=== PATIENT | male | born 1940 | race Caucasian/White ===

== ENCOUNTER → 2018-07-16 11:31 | Outpatient (CLI) | payer MEDICARE ==
[~2018-07-16] VITALS: Ht 182.9 cm; Wt 88.6 kg
--- NOTE | ~2018-07-16 | HEMODYNAMI ---
PATIENT:JARAD DIAMOND MEDICAL RECORD: [id number] : 40 LOCATION:[facility] ADMISSION DATE: 07/16/18 Generatedon:07/16/201814:17 Patient name: JARAD DIAMOND Patient #: [id number] S SN: : 1940 Date of study: 07/16/2018 Page: Of Hemodynamic Procedure Report Patient Data Patient Demographics Procedure consent was obtained First Name: JARAD Gender: Male Last Name: LOBO : 1940 Middle Initial: C Age: 77 year(s) Patient #: [id number] Race: Unknown Additional ID: [id number] Contact details Address: [address] [place] [address] [place] State: [place] City: [place] Zip code: [address] Past Medical History Allergies Allergen Reaction Date Comments Reported Other allergy 07/16/2018 codeine Admission Admission Data Admission Date: 07/16/2018 Admission Time: 11:31 Admit Source: Other Lab Results Lab Result Date: 07/16/2018 Lab Result Time: 12:00 Biochemistry Name Units Result Min Max BUN mg/dl 14 --(--*-)-- 7 18 Creatinine mg/dl 1.2 --(---*)-- 0.6 1.3 CBC Name Units Result Min Max Hematocrit % 44 --(*---)-- 42 54 Hemoglobin g/dl 15.1 --(-*--)-- 13.5 17.5 Coagulation Name Units Result Min Max INR units 1.11 --(---*)-- 0.85 1.17 PT sec 13.8 --(--*-)-- 11.6 15 Procedure Procedure Types Cath Procedure Diagnostic Procedure C [facility] w/Coronaries Sedation Charges Moderate Sedation up to 15 minutes Procedure Description Procedure Date Procedure Date: 07/16/2018 Procedure Start Time: 13:40 Procedure End Time: 14:03 Procedure Staff Name Function Arlet Lane RT Monitor Manfred Cruz RN Cell Assembly Pinner Reid White MD Performing Physician Neville Galo RT Scrub Cooper Barakat RN Nurse Mariah Montes RN Cell Assembly Pinner Procedure Data Cath Procedure Fluoroscopy Diagnostic fluoroscopy Total fluoroscopy Time: 3.7 time: 3.7 min min Diagnostic fluoroscopy Total fluoroscopy dose: 840 dose: 840 mGy mGy Contrast Material Contrast Material Type Amount (ml) Isovue 300 88 Entry Location Entry Primary Successful Side Size Upsize Upsize Entry Closure Succes sful Closure Location (Fr) 1 (Fr) 2 (Fr) Remarks Device Remarks Radial Right 6 Fr Exoseal artery Short Femoral Right 5 Fr 6 Fr 6 Fr Exoseal artery Long Short Estimated blood loss: 5 ml Diagnostic catheters Device Type Used For End Catheter Placement DIAGNOSTIC [place] 110cm 5 LV Angiography Fr catheter ([id number]) MULTIPACK JL 4.0 5Fr Left Coronary catheter Angiography MULTIPACK JL 4.0 5Fr Left Coronary catheter Angiography MULTIPACK 3DRC 5Fr Right Coronary catheter Angiography MULTIPACK Pigtail 5 Fr LV Angiography catheter Procedure Complications No complications Procedure Medications Medication Administration Route Dosage 0.9% NaCl I.V. 100 ml/hr Oxygen etCO2 Nasal cannula 2 l/min Heparin Flush Bag added to field 2 bags (1000units/500ml NS) Lidocaine 2% added to field 20 Radial Cocktail added to field 1 syringe (Verapomil 2mg/Nitro 400mcg/Heparin 1500units) Versed I.V. 1 mg Fentanyl I.V. 50 mcg Versed I.V. 1 mg Fentanyl I.V. 50 mcg Hemodynamics Rest HGB: 15.1 (g/dl) Heart Rate: 46 (bpm) Pressure Samples Time Site Value (mmHg) Purpose Heart Use Rate(bpm) 13:45 LV 96/1,4 Snapshot 51 13:46 LV 91/1,3 Pullback 76 13:46 AO 97/65(79) Pullback 76 13:57 LV 129/-2,10 EDP 60 Gradients Valve Time Site 1 Site 2 Mean SEP/DFP Peak To Heart Use (mmHg) (sec/min) Peak Rate (mmHg) (bpm) Aortic 13:46 LV AO 0 3 0 76 91/1,3 97/65(79) Aortic 13:57 LV AO 47 Snapshots Pre Cath Intra NCS Post Cath Vital Signs Time Heart Resp SPO2 etCO2 NIBP (mmHg) Rhythm Pain Sedation Rate (ipm) (%) (mmHg) Status Level (bpm) 13:33:35 47 13 96 35.7 157/89(134) SB 0 (11) 10(A) , No pain 13:37:59 46 11 98 36.4 136/87(105) SB 0 (11) 10(A) , No pain 13:42:07 47 14 98 29.8 140/91(107) SB 0 (11) 10(A) , No pain 13:46:23 47 12 97 18.6 106/71(82) SB 0 (11) 9(A) , No pain 13:50:25 49 13 96 23.8 118/74(94) SB 0 (11) 9(A) , No pain 13:54:33 48 10 96 30.4 124/72(94) SB 0 (11) 9(A) , No pain 13:58:36 46 13 96 35.7 134/88(107) SB 0 (11) 10(A) , No pain 14:02:44 59 8 96 8.9 128/79(98) SB 0 (11) 10(A) , No pain Medications Time Medication Route Dose Verified Delivered Reason Notes E ffectiveness by by 13:33:34 0.9% NaCl I.V. 100 Cooper Cooper Per ml/hr Lorigan Lorigan physician RN RN 13:33:44 Oxygen etCO2 2 l/min Cooper Cooper Per Nasal Lorigan Lorigan physician cannula RN RN 13:33:53 Heparin Flush added 2 bags Cooper Cooper used for Bag to Lorigan Lorigan procedure (1000units/500ml field RN RN NS) 13:34:03 Lidocaine 2% added 20ml Cooper Cooper for local to vial Lorigan Lorigan anesthetic field RN RN 13:34:18 Radial Cocktail added 1 Cooper Cooper used for (Verapomil to syringe Lorigan Lorigan procedure 2mg/Nitro field RN RN 400mcg/Hepari 13:36:28 Versed I.V. 1 mg Cooper Cooper for Lorigan Lorigan sedation RN RN 13:36:38 Fentanyl I.V. 50 mcg Cooper Cooper for Lorigan Lorigan sedation RN RN 13:42:08 Versed I.V. 1 mg Cooper Cooper for Lorigan Lorigan sedation RN RN 13:42:12 Fentanyl I.V. 50 mcg Cooper Cooper for Lorigan Lorigan sedation RN river pilot Log Time Note 13:05:04 Informed consent obtained and on chart 13:05:08 Admit Source: Other 13:05:25 Diagnostic Cath status Elective 13:05:26 Time tracking: Regular hours (M-F 7:00 - 5:00) 13:05:30 Plan of Care:Hemodynamics will remain stable., Cardiac rhythm will remain stable., Comfort level will be maintained., Respiratory function will remain adequate., Patient/ family verbilizes understanding of procedure., Procedure tolerated without complication., Recovers from procedure without complications.. 13:05:41 H&P Date Dictated: 07/11/2018 Within 30 days and on chart., H&P Addendum completed by physician on day of procedure. (MUST COMPLETE FOR ALL OUTPATIENTS). 13:06:54 Lab Result : Hematocrit 44 % 13:06:54 Lab Result : PT 13.8 sec 13:06:54 Lab Result : INR 1.11 units 13:06:54 Lab Result : BUN 14 mg/dl 13:06:54 Lab Result : Creatinine 1.2 mg/dl 13:06:54 Lab Result : Hemoglobin 15.1 g/dl 13:06:56 Lab results completed and on chart. 13:14:41 Cooper Barakat RN sent for patient. Start room use. 13:20:18 Patient received from Pre/Post Procedure Room to CCL 2 Alert and oriented. Tansferred to table in Supine position. 13:20:19 Correct patient and procedure confirmed by team. 13:20:19 Warm blankets applied, and kennedy hugger turned on for patient comfort. 13:20:20 ECG and BP/O2 sat monitors applied to patient. 13:20:21 Pre-procedure instructions explained to patient. 13:20:22 Pre-op teaching completed and patient verbalized understanding. 13:20:23 Family in waiting room. 13:20:24 Patient NPO since Midnight. 13:20:37 Patient allergic to Other allergycodeine 13:20:40 Is the patient allergic to Iodine/contrast media? No. 13:32:36 Vital chart was started 13:32:40 Rhythm: sinus bradycardia 13:32:41 Full Disclosure recording started 13:32:49 Is patient on blood thinner?No 13:32:51 Patient diabetic? No. 13:32:57 Previous problem with sedation/anesthesia? No ? 13:32:58 Snore? Yes 13:32:59 Deviated septum? No 13:32:59 Sleep apnea? No 13:33:01 Opens mouth fully? Yes 13:33:02 Sticks out tongue? Yes 13:33:04 Airway obstruction? No ? 13:33:05 Dentures? No ? 13:33:10 Pre procedure: right dorsailis pedis pulse 2+ Normal; easily identifiable; not easily obliterated 13:33:12 Modified Derek's test Ulnar < 7 seconds 13:33:13 Patient pain scale 0/10 ?. 13:33:21 IV patent on arrival in left forearm with 0.9% NaCl at [facility]. 13:33:34 0.9% NaCl 100 ml/hr I.V. was administered by Cooper Barakat RN; Per physician; 13:33:36 Right Radial & Right Groin area was prepped with chlora-prep and draped in sterile fashion 13:33:37 Sharps counted by scrub and verified by R.N. 13:33:37 Alarms reviewed by R. N. 13:33:40 Use device set Radial Dx or PCI 13:33:41 Medline Cath Pack ([id number]) opened to sterile field. 13:33:41 ACIST Syringe (69134) opened to sterile field. 13:33:42 DIAGNOSTIC WIRE .035 260cm J wire (405401) opened to sterile field. 13:33:42 Bag Decanter (2002S) opened to sterile field. 13:33:43 ACIST Manifold (42723) opened to sterile field. 13:33:43 ACIST Hand Control (02546) opened to sterile field. 13:33:44 MBrace Wrist Support ([id number]) opened to sterile field. 13:33:44 Oxygen 2 l/min etCO2 Nasal cannula was administered by Cooper Barakat RN; Per physician; 13:33:45 SHEATH 6FR Slender (80-1060) opened to sterile field. 13:33:53 Heparin Flush Bag (1000units/500ml NS) 2 bags added to field was administered by Cooper Barakat RN; used for procedure; 13:34:03 Lidocaine 2% 20ml vial added to field was administered by Cooper Barakat RN; for local anesthetic; 13:34:18 Radial Cocktail (Verapomil 2mg/Nitro 400mcg/Heparin 1500units) 1 syringe added to field was administered by Cooper Barakat RN; used for procedure; 13:34:42 Baseline sample Acquired. 13:34:46 Final Timeout: patient, procedure, and site verified with staff and physician. All members of the team are in agreement. 13:34:51 Right Radial site verified by team. 13:34:55 Fire Safety Assessment: A--An alcohol-based skin anteseptic being used preoperatively., C--Open oxygen or nitrous oxide is being used., D--An ESU, laser, or fiber-optic light is being used. 13:34:59 Physical assessment completed. ASA score P 2 - A patient with mild systemic disease as per Reid White MD. 13:35:03 Sedation plan: IV Moderate Sedation Medication:Versed, Fentanyl 13:36:28 Versed 1 mg I.V. was administered by Cooper Barakat RN; for sedation; 13:36:38 Fentanyl 50 mcg I.V. was administered by Cooper Barakat RN; for sedation; 13:37:04 Zero performed for pressure channel P1 13:37:09 Zero performed for pressure channel P1 13:40:26 Procedure started. 13:40:54 Local anesthetic to right radial artery with Lidocaine 2% by Reid White MD.INITIAL ACCESS ONLY 13:42:08 Versed 1 mg I.V. was administered by Cooper Barakat RN; for sedation; 13:42:10 A 6 Fr Short sheath was inserted into the Right Radial artery 13:42:12 Fentanyl 50 mcg I.V. was administered by Cooper Barakat RN; for sedation; 13:43:18 A DIAGNOSTIC [place] 110cm 5 Fr catheter ([id number]) was advanced over the wire and used for LV Angiography. 13:46:01 LV gram done using ALLISON 13:46:11 LV hemodynamics recorded. 13:46:15 Injector settings: Ml/sec: 5, Volume: 15, 13:46:20 Catheter removed. 13:46:38 Local anesthetic to right femoral artery with Lidocaine 2% by Reid White MD.ADDITIONAL ACCESS 13:46:47 Use device set Multipack Set 13:46:50 DIAGNOSTIC Multipack 5Fr catheter set ([id number]) opened to sterile field. 13:47:05 SHEATH 5FR Nordman (IJF222) opened to sterile field. 13:48:04 A 5 Fr sheath was inserted into the Right Femoral artery 13:48:32 A MULTIPACK JL 4.0 5Fr catheter was advanced over the wire and used for Left Coronary Angiography.removed unable to cannulate 13:50:23 SHEATH 6FR Destination (RSR01) opened to sterile field. 13:50:39 Sheath upsized to a 6 Fr Long. 13:50:49 SHEATH 6FR Nordman (MDK318) opened to sterile field. 13:52:52 A MULTIPACK JL 4.0 5Fr catheter was advanced over the wire and used for Left Coronary Angiography. 13:54:32 Catheter removed. 13:54:44 A MULTIPACK 3DRC 5Fr catheter was advanced over the wire and used for Right Coronary Angiography. 13:56:02 Catheter removed. 13:56:17 A MULTIPACK Pigtail 5 Fr catheter was advanced over the wire and used for LV Angiography. 13:57:27 LV gram done using ALLISON 13:57:32 Injector settings: Ml/sec: 10, Volume: 20, 13:57:37 EF : 55 % 13:57:51 Catheter removed. 13:58:06 Sheath removed intact; hemostasis achieved with Exoseal to the Right Femoral artery. 13:58:06 Sheath upsized to a 6 Fr Short. 13:58:17 Sheath removed intact; hemostasis achieved with Exoseal to the Right Radial artery. 13:58:25 Procedure ended.(Physican Out) 13:58:37 Fluoroscopy time 03.70 minutes. 13:58:40 Fluoroscopy dose: 840 mGy 13:58:40 Flurop Dose total: 840 13:58:47 Contrast amount:Isovue 300 88ml. 13:58:48 Sharps counted by scrub and verified by R.N. 13:58:51 TR band inflated with 12cc of air. 13:58:52 Insertion/operative site no bleeding no hematoma. 13:58:55 Post-op/insertion site Right Femoral artery dressed using a 4 x 4 and Tegaderm. 13:58:58 Post right femoral artery:stable, clean and dry 13:59:00 Post Procedure Pulses reassessed and unchanged 13:59:02 Post-procedure physical assessment completed. ASA score P 2 - A patient with mild systemic disease as per Reid White MD. 13:59:04 Post procedure rhythm: unchanged. 13:59:08 Estimated blood loss: 5 ml 13:59:10 Patient needs reinforcement of post procedure teaching. 13:59:10 Post procedure instruction explained to patient.Patient verbalizes understanding. 13:59:38 Procedure type changed to Cath procedure, Diagnostic procedure, LHC, C w/Coronaries, Sedation Charges, Moderate Sedation up to 15 minutes 13:59:44 Procedure Complication : No complications 14:00:04 Post right femoral artery:hematoma 14:00:09 See physician's report for complete and final results. 14:00:13 Femstop placed over the right femoral artery at 170 mmHg. Hemostasis achieved. 14:00:35 EXOSEAL 6Fr (EX600) opened to sterile field. 14:00:36 ZEPHYR REGULAR TR BAND NO COST(306647) opened to sterile field. 14:01:05 Procedure and supply charges have been captured, reviewed, submitted and are correct. 14:02:31 Vital chart was stopped 14:02:59 Report given to Pre/Post Procedure Room. 14:03:03 Patient transfered to Pre/Post Procedure Room with Stretcher. 14:03:08 Procedure ended. 14:03:08 Full Disclosure recording stopped 14:03:13 End room use (Document Last) Device Usage Item Name Manufacture Quantity Catalog Hospital Part Current Minima l Lot# / Number Charge Number Stock Stock Serial# Code ACIST Acist 1 32485 451623 380943 269267 20 Syringe [employer] (78133) Systems Inc Medline Cath Medline 1 [id number] 204118 28076 619842 5 Pack ([id number]) Bag Decanter Microtek 1 863598 17432 416046 5 () Medical Inc. DIAGNOSTIC [place] 1 803621 073640 360816 961647 30 WIRE .035 260cm J wire (744146) ACIST Hand Acist 1 80265 108667 479678 345163 5 Control Medical (79390) Systems Inc ACIST Acist 1 45441 160632 791654 553406 5 Manifold Medical (67697) Systems Inc MBrace Wrist Advanced 1 140-0250-00 441500 67769 434423 5 Support Vascular ([id number]) Dynamics SHEATH 6FR Terumo 1 [id number] 200915 100138 172953 5 Slender (80-8700) DIAGNOSTIC Terumo 1 40-1345 365273 689780 284401 5 [place] 110cm 5 Fr catheter (245236) DIAGNOSTIC Cardinal 1 JC2141 245076 54745 773136 30 Multipack Health 5Fr catheter set (LR4976) SHEATH 5FR Terumo 1 GWF543 736319 213185 445872 5 Nordman (BHL548) MULTIPACK JL Cardinal 1 975385 5 4.0 5Fr Health catheter SHEATH 6FR Terumo 1 RSR01 560748 88064 955012 5 Destination (RSR01) SHEATH 6FR Terumo 1 RKQ137 767641 234054 306641 40 Nordman (SGQ113) MULTIPACK Cardinal 1 064651 5 3DRC 5Fr Health catheter MULTIPACK Cardinal 1 319562 5 Pigtail 5 Fr Health catheter EXOSEAL 6Fr Cardinal 1 EX600 938090 151496 295678 10 (EX600) Health ZEPHYR Cardinal 1 836380 158331 269461 5 REGULAR TR Health BAND NO COST(771125) Signature Audit Marion Stage Time Signature Unsigned Intra-Procedure 07/16/2018 Arlet Nice Counts 2:03:24 PM Counts RT(R) RT(R) 07/16/2018 2:16:53 PM Intra-Procedure 07/16/2018 Arlet 2:17:30 PM Counts RT(R) Signatures Monitor : Arlet Signature : Counts RT Date : Time : [facility] [address] [place] [address]
[~2018-07-16 11:31] MED LIST: BAYER CHEWABLE81 MG PO; CARDIZEM60 MG PO; COUMADIN2 MG PO; KLONOPIN0.5 MG PO; METOPROLOL TART50 MG PO; OMEPRAZOLE20 M1 PO
[2018-07-16 12:11] VITALS: BP 157/101; Ht 182.9 cm; Wt 88.6 kg
[2018-07-16 12:19] LABS: BASOPHILS 0.2 % (0-2); EOSINOPHILS 4.5 % (0-7); HEMOGLOBIN 15.1 g/dL (13.5-17.5); IMMATURE GRANULOCYTES 0.6 % (0-5); LYMPHOCYTES 28.1 % (15-50); MCH 29.8 pg (26.0-34.0); MCHC 34.3 g/dL (31.0-37.0); NEUTROPHILS 59.6 % (40-80); PLATELET COUNT 121 10x3/uL (130-400); RBC 5.06 10x6/uL (4.20-6.10); RDW 13.7 % (11.5-14.5); WBC 4.8 10x3/uL (4.8-10.8)
[2018-07-16 12:40] LABS: ANION GAP 14.8 mmol/L (8-16); CALCIUM 9.4 mg/dL (8.5-10.1); CARBON DIOXIDE 26.4 mmol/L (21.0-32.0); CREATININE - SERUM 1.2 mg/dL (0.6-1.3); POTASSIUM - SERUM 4.2 mmol/L (3.5-5.1)
[2018-07-16 13:02] LABS: INR 1.11 (0.85-1.17); PROTIME 13.8 SECONDS (11.6-15.0)
--- NOTE | 2018-07-16 14:26 | NUR ---
RECIEVED TO ROOM VIA STRETCHER FROM PACKAGE DRIER WITH ZYPHER BAND TO R/WRIST CDI AND FEMSTOP TO R/GROIN WITH PRESSURE AT 179. HEMATOMA NOTED AND MARKED FOR OBSERVATION. PATIENT CONNECTED TO MONITOR FOR OBSERVATION WITH HR 45. INSTRUCTED PATIENT TO KEEP HEAD FLAT ON PILLOW WITH RLE STRAIGHT
--- NOTE | 2018-07-16 14:37 | NUR ---
FEMSTOP TO R/GROIN WITH NO ADDITIONAL GROWTH TO HEMATOMA. PATIENT DENIED PAIN OR NEEDS. FAMILY IS PRESENT AT BEDSIDE [facility] DR MARIA
--- NOTE | 2018-07-16 14:45 | NUR ---
PRESSURE RELEASED ON FEMSTOP TO 130 NO GROWTH AT HEMATOMA. PATIENT REMAINS SB RATE OF 45
--- NOTE | 2018-07-16 14:57 | NUR ---
PRESSURE TO FEMSTOP LOWERED TO 100 WITH NO GROWTH TO HEMATOMA
--- NOTE | 2018-07-16 15:11 | NUR ---
FINAL PRESSURE TO FEMSTOP RELEASED WITH NO GROWTH TO HEMATOMA. ZYPHER BAND REMAINS INTACT TO R/WRIST CDI NO BLEEDING NOTED. PATIENT DENIED PAIN OR NEEDS FAMILY IS AT BEDSIDE
--- NOTE | 2018-07-16 15:31 | NUR ---
R/GROIN IS CDI WITH NO BLEEDING OR HEMATOMA. 4 CC AIR REMOVED FROM ZYPHER BAND WITH NO BLEEDING OR HEMATOMA NOTED
--- NOTE | 2018-07-16 15:40 | NUR ---
FEMSTOP REMOVED WITH NO BLEEDING OR HEMATOMA DRESSING APPLIED REPOSITIONED WITH HOB UP 20 DEGREES. SANDWICH AND SODA TO BEDSIDE WITH FAMILY ASSISTING
--- NOTE | 2018-07-16 15:55 | NUR ---
REPOSITIONED TO SITTING WITH HOB UP 30 DEGREES. DRESSING TO R/GROIN IS CDI. 4 CC AIR REMOVED FROM ZYPHER BAND WITH NO BLEEDING
--- NOTE | 2018-07-16 16:07 | NUR ---
VERBAL AND WRITTEN DISCHARGE GONE OVER WITH FAMILY AND PATIENT. PIV REMOVED WITH DRESSING APPLIED. PATIENT UP TO GET DRESSED FOR DISCHARGE HOME
--- NOTE | 2018-07-16 16:25 | NUR ---
ZYPHER BAND REMOVED WITH DRESSING APPLIED. PATIENT DENIED PAIN OR NEEDS. LEFT VIA WC TO PARKING FOR PRIVATE TRANSPORT HOME
--- NOTE | 2018-07-19 09:01 | OP ---
PATIENT NAME: JARAD DIAMOND MEDICAL RECORD: [id number] :40 LOCATION:D.CAT ADMISSION DATE: SURGEON: WENDY MARIA MD DATE OF OPERATION: 07/16/2018 PROCEDURE: Left heart catheterization, selective coronary angiography, right femoral artery approach. CATHETERS: A 5-[place]izen [place] sheath, 5/4 left and right Wm, 5/4 pig. The procedure was well tolerated. The patient was returned to the olsen. Sheath was removed. ExoSeal device was placed. FINDINGS: Left ventriculography in 30-degree ALLISON view: Normal wall motion. Normal systolic function. CORONARY ANATOMY: LEFT MAIN: Left main is free of disease. LAD: Free of disease in the diagonal system. CIRCUMFLEX: Free of disease in the marginal system. RIGHT CORONARY ARTERY: Dominant artery, gives rise to PDA, free of disease. IMPRESSION: Normal LV systolic function. Normal coronary anatomy. TRANSINT:[id number] Voice Confirmation ID: [id number] DOCUMENT ID: [id number] WENDY MARIA MD at 0901 CC: [id number] DICTATION DATE: 07/16/18 1410 FRONT OFFICE JAVA DEVELOPER: 07/16/18 1542 DEP CLI 07/16/18 [id number] [place] [address]
== END | disposition home or self-care (01) ==
LOC: D.CATH 11:31
PROVIDERS: Internal Medicine Interventional Cardiology
DX: I20.9 Angina pectoris, unspecified (principal); I10 Essential (primary) hypertension; Z01.812 Encounter for preprocedural laboratory examination